=== PATIENT | female | born 1965 | race Caucasian/White ===

== ENCOUNTER → 2019-02-17 | Outpatient (CLI) | payer OTHER | LOC: RAD 11:07 | DX: Z12.31 Encounter for screening mammogram for malignant neoplasm of breast (principal) ==

== ENCOUNTER → 2019-08-20 | Outpatient (CLI) | payer OTHER | LOC: RAD 13:23 | DX: M17.0 Bilateral primary osteoarthritis of knee (principal); M16.0 Bilateral primary osteoarthritis of hip ==

== ENCOUNTER 2019-12-23 16:46 | Inpatient (IN) | payer OTHER ==
[~2019-12-23] VITALS: Ht 165.1 cm; Wt 80.3 kg
--- NOTE | ~2019-12-23 | D ---
[facility] [place] [address] DISCHARGE SUMMARY Name: TOMASZ LUDWIG DORCAS Room #: 441-P [facility] IN M.R.#: [id number] Admission: 01/31/20 Attend Phys: Hammad Mccurdy MD Discharge: 02/02/20 Date of : 65 Report #: [id number] THIS REPORT FOR: cc: Xiomara York MD, Sara A. MD Clymer, David J. MD ~ THIS REPORT FOR: //name// CC: Hammad York DATE OF SERVICE: 02/02/2020 FINAL DIAGNOSIS: End-stage degenerative arthritis of her right hip. OPERATIVE PROCEDURE: Right total hip arthroplasty. HISTORY OF PRESENT ILLNESS: This generally active, fit and healthy 54-year-old female presents with severe early degenerative arthritis involving multiple joints. This involves both hips and both knees to some extent. The right hip is the most severe. She has decided to go ahead with right total hip arthroplasty. HOSPITAL COURSE: The patient was admitted and taken to the operating room on 01/31/2020. She underwent right total hip replacement, which she tolerated quite nicely. Postoperatively, her course was largely unremarkable. She was able to quickly advanced from IV analgesics to oral analgesics and resume a regular diet. She participated with physical therapy and made excellent progress. She was started on anticoagulation using Xarelto. She has excellent assistance at home and felt quickly that she was able to manage and was anxious for hospital discharge. DISCHARGE MEDICATIONS: Include Xarelto 10 mg daily and hydrocodone 10 mg q.8 hours p.r.n. for pain. She will continue moderate activity at home with assistance from family. I have asked her to call me or return should there be any problems or questions. I will otherwise plan to see her back in my office in about 1 week postoperatively for routine followup. By: [id number] Hammad Mccurdy MD /nt
[2020-01-13] MEDS ORDERED: MAGNESIUM500 MG PO (14:22)
[2020-01-13] MEDS ORDERED: VITAMIN D325 MC3 PO (14:22)
[2020-01-13] MEDS ORDERED: VYVANSE40 MG PO (14:22)
[2020-01-13] MEDS ORDERED: IBU600 MG PO (14:24)
[2020-01-20 09:28] LABS: HEMATOCRIT 40.9 % (37.0-47.0); HEMOGLOBIN 14.1 gm/dL (12.0-15.0); MCH 32.7 pg (26.0-34.0); MCHC 34.6 g/dL (28.0-37.0); MCV 94.5 fL (80.0-100.0); RBC 4.33 mil/uL (4.20-5.00); RDW 12.2 % (10.5-14.5); WBC 7.6 thou/uL (4.0-11.0)
[2020-01-20 09:33] LABS: ALBUMIN 4.1 g/dL (3.4-5.0); CALCIUM 8.9 mg/dL (8.5-10.1); CREATININE 0.8 mg/dL (0.6-1.0); POTASSIUM 4.5 mmol/L (3.5-5.1)
[2020-01-20 09:34] LABS: URINE BILIRUBIN NEGATIVE (Negative); URINE BLOOD NEGATIVE (Negative); URINE CLARITY CLEAR; URINE COLOR YELLOW; URINE GLUCOSE-RANDOM* NEGATIVE (Negative); URINE KETONES NEGATIVE (Negative); URINE LEUKOCYTES-REFLEX NEGATIVE (Negative); URINE NITRITE-REFLEX NEGATIVE (Negative); URINE PROTEIN (DIPSTICK) NEGATIVE (Negative); URINE SPECIFIC GRAVITY <= 1.005 (1.005-1.035); URINE UROBILINOGEN 0.2 E.U./dl (0.2-1.0)
[2020-01-20 09:35] LABS: PROTIME 10.2 Seconds (9.3-11.4)
--- NOTE | 2020-01-21 08:41 | EKG ---
[facility] [place] [address] [place] [address] ELECTROCARDIOGRAM REPORT Name: NARAYAN LUDWIGAreli TOSCANO Room #: PRE IN M.R.#: [id number] Admission: Attend Phys: Hammad Mccurdy MD Discharge: Date of : 65 Report #: [id number] THIS REPORT FOR: cc: Xiomara York MD, Sara A. MD Lundgren,Will Mora MD [facility] ~ THIS REPORT FOR: //name// 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
[2020-01-31 08:53] VITALS: BP 121/68
[2020-01-31 13:45] VITALS: BP 114/71
[2020-01-31 14:00] VITALS: BP 113/84
[2020-01-31 14:40] VITALS: BP 113/60
--- NOTE | 2020-01-31 15:16 | NUR ---
PATIENT ADMITTED FROM OR ARRIVED ON THE UNIT AT 1330. PATIENT ALERT AND ORIENTED X4. PATIENT HAS RIGHT HIP CHANTALE DRESSING, SCD'S, NATALIIA HOSE, AND ICE PACK, ALSO HEMOVAC IN PLACE. LEFT FOREARM IV IN PLACE. PATIENT C/O PAIN WITH RIGHT HIP AREA, 8/10, OXYCODONE 1 TABLET GIVEN. IV FLUIDS STARTED. ADMISSION DONE, EXCEPT CAREPLAN. REPORT GIVEN TO SHIRA/YANICK. DIPAK/PT WORKED WITH THE PATIENT, SHE FELT LIKE SHE WAS GOING TO PASS OUT, ONLY WALKED 10 FEET. WILL CONTINUE TO MONITOR.
[2020-01-31 18:59] VITALS: BP 116/63
--- NOTE | 2020-01-31 19:46 | NUR ---
PATIENT IS NEW TO UNIT ROOM 441. PT ALERT XS 4. USES BSC TO URINATE. EATING SNACK PACK AND APPLESAUCE. DRINKS WATER AND SPRITE. PICCO DRESSING TO RIGHT HIP. HAS HEMOVAC TO RIGHT HIP. PT GIVEN PRN PAIN MED. PT IS ROOM AIR AND REGULAR DIET,
[2020-02-01 03:34] VITALS: BP 103/61
[2020-02-01 06:21] LABS: HEMATOCRIT 33.8 % (37.0-47.0); HEMOGLOBIN 11.4 gm/dL (12.0-15.0); MCHC 33.7 g/dL (28.0-37.0); MCV 94.8 fL (80.0-100.0); RBC 3.57 mil/uL (4.20-5.00); RDW 12.6 % (10.5-14.5); WBC 9.4 thou/uL (4.0-11.0)
[2020-02-01 07:49] VITALS: BP 102/59
--- NOTE | 2020-02-01 07:52 | O ---
[facility] [place] [address] OPERATIVE REPORT Name: TOMASZ LUDWIG Room #: 441-P ADM IN M.R.#: [id number] Admission: 01/31/20 Attend Phys: Hammad Mccurdy MD Discharge: Date of : 65 Report #: [id number] THIS REPORT FOR: cc: Xiomara York MD, Sara A. MD Clymer, David J. MD ~ CC: Hammad York DATE OF SERVICE: 01/31/2020 PREOPERATIVE DIAGNOSIS: End-stage degenerative arthritis, right hip. POSTOPERATIVE DIAGNOSIS: End-stage degenerative arthritis, right hip. PROCEDURE: Right total hip arthroplasty. SURGEON: Hammad Mccurdy MD INDICATIONS: This generally healthy, active 54-year-old female has severe early degenerative arthritis in multiple joints. The right hip demonstrates evidence of some mild dysplasia with a shallow acetabulum and rather severe end-stage degenerative arthritis with significant deformity of the femoral head and complete loss of joint space. Given these findings and symptoms, she has elected to go ahead with right total hip replacement at this time. DESCRIPTION OF PROCEDURE: The patient was taken to the operating room where she was placed under general anesthesia. Prophylactic intravenous antibiotics were administered. She was positioned in the left lateral decubitus position and the right hip, thigh and leg were meticulously prepped and draped. A slightly curving posterolateral skin incision was made centered over the greater trochanter. This was carried through subcutaneous tissues and fascia and gluteus to expose the posterior aspect of the hip joint. The short external rotators and capsule were taken down and tagged with several #1 Tevdek sutures and preserved. The hip was dislocated posteriorly. Marked degenerative change on both the femoral head and acetabulum was noted. There was rather extensive spurring around the margin of the acetabulum, which was debrided. A femoral neck osteotomy was performed and the canal was opened with reamers and hand broaches. The Ambrocio and Nephew hip system was utilized. A size 12 standard femoral stem seemed to fit quite nicely. The trial broach was removed and attention directed to the acetabulum. Further debridement of the periacetabular osteophytes was performed and the acetabulum was sequentially reamed, gradually advancing to a 52 mm diameter reamer. A Ambrocio and Nephew size 52 StikTite 3-hole acetabular shell was selected. This was inserted in alignment with her true acetabulum, which positioned this in about 45 degrees off of vertical and about 20-25 degrees of anteversion. The cup seated nicely and appeared to be [address] [address] OPERATIVE REPORT Name: TOMASZ LUDWIG DORCAS Room #: 441-P [facility] IN M.R.#: [id number] Admission: 01/31/20 Attend Phys: Hammad Mccurdy MD Discharge: Date of : 65 Report #: [id number] very secure. In addition, 2 cancellous screws were placed through the apical holes engaging good periacetabular bone and adding to the overall stability. A 36-mm polyethylene liner was then inserted, placing the 20-degree elevated rim at about the 10 o'clock posterior position. It was snapped into place and seated nicely and appeared to be secure. The permanent Ambrocio and Nephew size 12 standard Synergy press fit femoral stem was then inserted. This was positioned about 15 degrees of anteversion. It seated nicely and appeared to be secure. Trial reduction was performed and a +0 neck length seemed to fit nicely. The 36 mm Oxinium head with a +0 neck length was selected. This was impacted on the Johns taper. The hip was reduced. Alignment, range of motion, stability and leg length were assessed and felt to be satisfactory. Good hemostasis was confirmed. The wound was aggressively irrigated. The capsule and short external rotators were then repaired back to bone using #1 Tevdek sutures, passed through several small drill holes in the greater trochanter. A single Hemovac was left in the wound exiting through a separate stab incision. The fascia was closed with multiple #1 Vicryl sutures. The subcutaneous tissues were closed with 0 Monocryl and the skin was closed with skin alannah. A sterile dressing was applied. The patient was awakened and returned to recovery room in good condition. <ELECTRONICALLY SIGNED> By: Hammad Mccurdy MD 02/01/20 0752 1157 1211 Hammad Mccurdy MD /nt
[2020-02-01 08:43] LABS: CREATININE 0.7 mg/dL (0.6-1.0); POTASSIUM 4.2 mmol/L (3.5-5.1)
--- NOTE | 2020-02-01 13:35 | NUR ---
ASSESSMENT: CM REVIEWED CHART AND SPOKE WITH PATIENT. PT IS ALERT AND ORIENTED X4. PT IS S/P R TKA. PT REPORTS LIVING IN A HOUSE WITH HER SPOUSE. PT REPORTS HAVING ABOUT THREE STEPS TO ENTER WITH A HANDRAIL. PT REPORTS SHE NORMALLY AMBULATES INDEPENDENTLY AND IS INDEPENDENT WITH ADLS. PT REPORTS HAVING A WALK IN SHOWER. PT HAS BEEN AMBULATING WITH THERAPY AND IS NEEDING A WALKER FOR HOME. CM SPOKE WITH PT AND SHE HAS NO PREFERENCE OF [employer]. CM GOT RX FOR WALKER AND FAXED TO [facility] PT AND AWAITING FURTHER INPUT FROM THEM. PT REPORTS SHE HAS NOT HAD HH IN THE PAST NOR BEENM TO A SNF. PHYSICAL THERAPY IS RECOMMENDING HOME VS. OUTPATIENT. CM WILL CONTINUE TO FOLLOW TO ASSIST NEEDED.
[2020-02-01 17:14] VITALS: BP 109/62
--- NOTE | 2020-02-01 18:38 | NUR ---
ASSUMED PATIENT CARE AT 0700. PATIENT TYE X4.HAD TOTAL RT HIP REPLACEMENT. PAIN OF 5-6 ON RT HIP, WELL CONTROLLED BY PAIN MEDS. PAIN TOLERATING WELL ON AMBULATION AND ON STAND BY ASST. HEMOVAC REMOVED, CHANTALE DRESSING, SCD'S AND ICE PACKS IN PLACE. BED IN LOW POSITION, CALL LIGHT IN REACH, PATIENT WILL CALL FOR HELP, WILL CONTINUE TO MONITOR.
[2020-02-01 19:01] VITALS: BP 111/61
[2020-02-02 03:06] VITALS: BP 107/50
--- NOTE | 2020-02-02 05:27 | NUR ---
PT WAS OBSERVED WATCHING TV AT START OF SHIFT.ASSESSMENT COMPLETED.PT C/O PAIN ON HER R HIP,MANAGED WITH MED.SCD AND NATALIIA HOSE IN PLACE.PT COMPLAINED THAT BOTH HER LEGS ARE NO LONGER EQUAL,PT STATED THAT SHE OBSERVED IT WHEN SHE TRIED TO WALK.PT STATED THAT SHE WILL LET PHYSICIAN KNOW IN AM.DRSG TO HER HIP C/D/I.CHANTALE DRSG AND ICE IN PLACE.PT RESTING ON HER BED AT THIS TIME.FALL PRECAUTIONS IN PLACE,CALL LIGHT WITHIN REACH.
[2020-02-02 05:45] LABS: ABSOLUTE NEUTROPHILS 5.8 thou/uL (1.4-8.2); BASOPHILS 0.4 % (0.0-2.0); EOSINOPHILS 0.9 % (0.0-3.0); HEMATOCRIT 30.8 % (37.0-47.0); HEMOGLOBIN 10.7 gm/dL (12.0-15.0); LYMPHOCYTES 15.3 % (24.0-44.0); MCH 32.9 pg (26.0-34.0); MCHC 34.7 g/dL (28.0-37.0); MCV 94.9 fL (80.0-100.0); MONOCYTES 11.2 % (1.0-8.0); PLATELET COUNT 207 thou/uL (150-400); POLYS 72.2 % (36.0-66.0); RBC 3.24 mil/uL (4.20-5.00); RDW 12.5 % (10.5-14.5)
[2020-02-02 06:03] LABS: CALCIUM 7.9 mg/dL (8.5-10.1); CREATININE 0.6 mg/dL (0.6-1.0); MAGNESIUM 1.8 mg/dL (1.8-2.4); POTASSIUM 3.8 mmol/L (3.5-5.1)
[2020-02-02 07:45] VITALS: BP 102/57
--- NOTE | 2020-02-02 15:05 | NUR ---
ON-GOING ASSESSMENT: CM REVIEWED CHART AND SPOKE WITH PT. CM ALSO SPOKE WITH [facility] TO GET A FOLLOW UP ON WALKER. THEY STATE THEY ARE IN-NETWORK WITH INSURANCE BUT ADRIANNE WANTS THEM TO COMPLETE A FORM PRIOR TO THEM APPROVING WALKER. THEY ARE GOING TO SUBMIT FORM AND WILL GET BACK WITH CM. CM UPDATED PT. CM ALSO FAXED [facility] PATIENTS PHYSICAL THERAPY NOTE RECOMMENDING A WALKER. CM SPOKE WITH PT WHO STATES HER OUTPATIENT THERAPY HAS NOT BEEN SET UP. CM NOTIFIED BEDSIDE RN TO GET A RX FROM DR HUFF FOR OUTPATIENT PT/OT. CM ALSO CONTACTED [facility] OUTPATIENT THERAPY [phone] TO GIVE THEM A HEADS UP OF REFERRAL. CM SPOKE WITH BEDSIDE RN WHO REPORTS DR. HUFF WILL NOT BE BY UNTIL LATER THIS EVENING. CM NOTIFIED PT TO TAKE SCRIPT TO OUTPT THERAPY. CM ALSO NOTIFIED TO CALL THEM TO SCHEDULE OUTPATIENT THERAPY. PT REPORTS HAVING A FAMILY MEMBER WHO HAS A WALKER AT HOME SHE CAN USE UNTIL [facility] PT GETS BACK TO HER. CM NOTIFIED [facility] PATIENT OF PATIENTS HOME NUMBER, THEY STATE THEY ARE COMPLETING THE FORM AND FAXING TO HER INSURANCE AND UNSURE HOW LONG IT WILL TAKE THEM TO HEAR BACK. PT REPORTS HAVING A WALKER SHE CAN USE IN THE MEANTIME. PT REPORTS NO FURTHER QUESTIONS FOR CM.
[2020-02-02 16:35] VITALS: BP 106/68
--- NOTE | 2020-02-02 16:45 | NUR ---
ASSUMED PATIENT CARE AT 0700. PT AXO X4, STAND BY ASST.CONCERN ABT THE ALIGNMENT OF HER FEET- SHE SAYS LEGS OT EQUAL. PAIN MANAGED BY PAIN MEDS, SITTING ON HER CHAIR MOST OF THE TIME. IV LEFT AC. PICCO DRESSING, SCD'S AND ICE PACK IN PLACE.SHE SAID, SHE COMMUNICATES HER COND WITH FAMILY. CALL LIGHT IN REACH, BED IN LOW POSITION, WILL CALL FOR HELP. WILL CONT TO MONITOR.
[2020-02-02 18:13] VITALS: BP 106/68
== END 2020-02-02 19:19 | disposition home or self-care (01) | DRG 470 ==
LOC: PRE 16:46 → TBA 01-31 08:03 → 4S 01-31 08:03 → PRE 01-31 08:33 → 4S 01-31 13:33 → PRE 01-31 16:27 → 4S 02-02 19:19
PROVIDERS: Nurse Practitioner; ADMIT Orthopaedic Surgery
PROC: 0SR906A Replacement of Right Hip Joint with Oxidized Zirconium on Polyethylene Synthetic Substitute, Uncemented, Open Approach (ICD-10-PCS; principal; 2020-01-31)
DX: M16.11 Unilateral primary osteoarthritis, right hip (principal); Z88.2 Allergy status to sulfonamides; Z79.899 Other long term (current) drug therapy; F90.9 Attention-deficit hyperactivity disorder, unspecified type
CPT/HCPCS: 10102; 50010; 50101; 50382; 50414; 51412; 51771; 53368; 56521; 56525; 56527; 57095; 57103; 57104; 62110; 62900; 70005

== ENCOUNTER → 2020-06-06 | Outpatient (CLI) | payer OTHER ==
[~2020-06-06] MED LIST: IBU600 MG PO; MAGNESIUM500 MG PO; VITAMIN D325 MC3 PO; VYVANSE40 MG PO
== END ==
LOC: RAD 09:20
PROVIDERS: ATTEND Family Medicine
DX: Z12.31 Encounter for screening mammogram for malignant neoplasm of breast (principal); N60.82 Other benign mammary dysplasias of left breast; N60.81 Other benign mammary dysplasias of right breast; Z98.890 Other specified postprocedural states

== ENCOUNTER → 2020-08-09 | Outpatient (CLI) | payer OTHER ==
[~2020-08-09] MED LIST changes: +APPLE CIDER VINEGAR PO
== END ==
LOC: LAB 07:59
PROVIDERS: ATTEND Orthopaedic Surgery
DX: Z20.828 Contact with and (suspected) exposure to other viral communicable diseases (principal)

== ENCOUNTER 2020-08-14 07:39 | Inpatient (IN) | payer OTHER ==
[2020-07-31 09:42] LABS: ALBUMIN 3.5 g/dL (3.4-5.0); CALCIUM 8.8 mg/dL (8.5-10.1); CREATININE 0.9 mg/dL (0.6-1.0); HEMATOCRIT 37.9 % (37.0-47.0); HEMOGLOBIN 12.8 gm/dL (12.0-15.0); MCH 31.6 pg (26.0-34.0); MCHC 33.9 g/dL (28.0-37.0); MCV 93.3 fL (80.0-100.0); POTASSIUM 4.5 mmol/L (3.5-5.1); RBC 4.07 mil/uL (4.20-5.00); RDW 14.7 % (10.5-14.5); WBC 5.5 thou/uL (4.0-11.0)
[2020-07-31 09:44] LABS: URINE BILIRUBIN NEGATIVE (Negative); URINE BLOOD NEGATIVE (Negative); URINE CLARITY CLEAR; URINE COLOR YELLOW; URINE GLUCOSE-RANDOM* NEGATIVE (Negative); URINE KETONES NEGATIVE (Negative); URINE LEUKOCYTES-REFLEX NEGATIVE (Negative); URINE NITRITE-REFLEX NEGATIVE (Negative); URINE PROTEIN (DIPSTICK) NEGATIVE (Negative); URINE UROBILINOGEN 0.2 E.U./dl (0.2-1.0)
[2020-07-31 09:55] LABS: PROTIME 10.2 Seconds (9.3-11.4)
[~2020-08-14] VITALS: Ht 165.1 cm; Wt 83.0 kg
[2020-08-14 08:34] VITALS: BP 125/76
[2020-08-14 14:09] VITALS: BP 125/76
--- NOTE | 2020-08-14 15:39 | NUR ---
ASSESSMENT: CM REVIEWED CHART AND SPOKE WITH PT. PT IS S/P LEFT THR. PT REPORTS LIVING IN A HOUSE WITH HER SPOUSE BUT WILL BE STAYING WITH HER MOTHER AT DISCHARGE THERE IS ONLY ONE STEP TO ENTER. PT REPORTS SHE HAS BEEN BORROWING A WALKER. PT REPORTS SHE WOULD LIKE TO TRY TO GET ONE THROUGH INSURANCE IF POSSIBLE. PER PAST RECORDS ATTEMPTED TO GET PT A WALKER THROUGH [facility] BUT PT REPORTS THEY NEVER DELIVERED HER ONE. PT REPORTS THAT HER SONS ARE THERASPIST AND DID HER THERAPY AT DISCHARGE AND REPORTS SHE IS GOING TO DO THIS AGAIN. CM WILL CONTINUE TO FOLLOW TO ASSIST NEEDED. CM ATTEMPTING TO REACH OUT TO [facility] IN REGARDS TO WALKER.
--- NOTE | 2020-08-14 20:19 | NUR ---
PT CARE ASSUMED FROM PACU AT 1330. A&Ox4. ADMISSION COMPLEETED. PAIN TOLERATED WELL WITH PAIN MEDICATION ON BOARD. VITALS STABLE. IV PATENT WITH NO REDNESS OR EDEMA, FLUIDS INFUSING. NATALIIA HOSES/SCD'S/ ICE BAG IN PLACE. CHANTALE DRESSING DRY AND INTACT. HEMOVAC DRAIN WELL 175ML. TOLERATING CLEAR LIQUIDS WELL ADVANCED DIET. HIP PRECOUTIONS IN PLACE. OT/PT/RT ON BOARD. PT HAS GOTTEN UP TO THE BEDSIDE COMMODE AND BECAME LIGHTHEADED. THIS WAS THE SAME WITH HER LAST HIP SURGERY A FEW MONTHS BACK. PHYSICALY TOLERATING TRANSFER WELL WITH STANDBY ASSIST. LATEX ALLERGY. FALL PROTOCOL IN PLACE. CALL LIGHT IN REACH. WILL CONTINUE TO MONITOR.
[2020-08-14 22:13] VITALS: BP 115/75
--- NOTE | 2020-08-15 03:59 | NUR ---
ALERT AND ORIENTED.VERY PLEASANT.LEFT HIP WITH CHANTALE C/D/I. ICE ARGELIA APPLIED.PAIN WELL MANAGED WITH OXYCODONE.SHE WAS ABLE TO GET TO THE BSC X1 THEN WALKED TO THE BATHROOM THEREFATER.HEMOVAC INTACT. AFEBRILE.DENIES ANY N/V.VOIDING WITH NO DIFFICULTY.PROGRESSING TOWARDS CARE GOALS.CALL LIGHT WITHIN REACH.
[2020-08-15 06:04] LABS: HEMATOCRIT 35.7 % (37.0-47.0); HEMOGLOBIN 11.9 gm/dL (12.0-15.0); MCH 31.4 pg (26.0-34.0); MCHC 33.3 g/dL (28.0-37.0); MCV 94.2 fL (80.0-100.0); RBC 3.79 mil/uL (4.20-5.00); RDW 14.2 % (10.5-14.5)
--- NOTE | 2020-08-15 08:14 | O ---
[facility] [place] [address] OPERATIVE REPORT Name: TOMASZ LUDWIG Room #: 437-P ADM IN M.R.#: [id number] Admission: 08/14/20 Attend Phys: Hammad Mccurdy MD Discharge: Date of : 65 Report #: [id number] THIS REPORT FOR: cc: Xiomara Yrok MD, Sara A. MD Clymer,Hammad Albert MD ~ DATE OF SERVICE: 08/14/2020 PREOPERATIVE DIAGNOSIS: End-stage degenerative arthritis, left hip. POSTOPERATIVE DIAGNOSIS: End-stage degenerative arthritis, left hip. PROCEDURE: Left total hip arthroplasty. SURGEON: Hammad Mccurdy M.D. INDICATIONS: This 55-year-old female has rather severe progressive degenerative arthritis involving both hips. Previously she underwent a right total hip replacement with good result. She returns now for planned left hip replacement. DESCRIPTION OF PROCEDURE: The patient was taken to the operating room where she was placed under general anesthesia. Prophylactic intravenous antibiotics were administered. She was turned to the right lateral decubitus position. The left hip, thigh and leg were meticulously prepped and draped. A slightly curving skin incision was made centered over the greater trochanter. This was extended through subcutaneous adipose tissues, fascia and the short external rotators were taken down and tagged with several #1 Tevdek sutures. The hip was dislocated posteriorly. Marked degenerative change on both the femoral head and acetabulum was noted. The Ambrocio and Nephew hip system was utilized. A femoral neck osteotomy was created and the canal was opened with reamers and hand broaches. A size 11 trial stem seemed to fit most nicely. The calcar was trimmed down to an appropriate level. The trial component was removed and attention directed to the acetabulum. The acetabulum was sequentially reamed, gradually advancing to a size 52 mm reamer. A Ambrocio and Nephew size 52, 3-hole StikTite shell was selected. This was impacted into the acetabulum in alignment with her true acetabulum, placing this in about 45 degrees off of vertical and about 20 degrees of anteversion. It seated nicely and appeared to be secure. In addition, 3 cancellous screws were placed through the atypical holes with good purchase on periacetabular bone adding to secure stability. A 36-mm diameter polyethylene liner was then inserted, placing the 20-degree elevated rim at about the 10 o'clock posterior position. It seated nicely and was secure. A trial reduction was performed and the hip was nicely stabilized when using the size 11 femoral stem and a +4 mm neck length head. The trial component was removed and the permanent Ambrocio and Nephew size 11 Synergy porous femoral component was inserted, placing this in about 15-20 degrees of [address] [address] OPERATIVE REPORT Name: TOMASZ LUDWIG Room #: 437-P [facility] IN M.R.#: [id number] Admission: 08/14/20 Attend Phys: Hammad Mccurdy MD Discharge: Date of : 65 Report #: [id number] anteversion. It seated nicely and appeared to be secure. A femoral head was then applied using the Oxinium 36 mm diameter head with a +4 mm neck length. The hip was reduced. Alignment, range of motion, stability and leg length were assessed and felt to be satisfactory. The short external rotators were then repaired also adding to hip stability. A single Hemovac was left in the wound exiting through a separate stab incision. The fascia was closed with multiple #1 Vicryl sutures. The subcutaneous tissues were closed with 0 Monocryl. The skin was closed with skin alannah. A sterile dressing was applied. The patient was awakened and returned to recovery room in good condition. <ELECTRONICALLY SIGNED> By: Hammad Mccurdy MD 08/15/20 0814 1201 1211 Hammad Mccurdy MD /nt
[2020-08-15 08:42] VITALS: BP 98/55
[2020-08-15 09:04] VITALS: BP 115/75
--- NOTE | 2020-08-15 10:36 | NUR ---
RD received nutrition consult and pt visited this am. Pt notes she had passed out due to skipping a meal, but her appetite is now doing well and eating at baseline. No recent wt loss noted [employer] and is currently 102% of reported usual body wt. Pt with no nutritional questions/concerns, no nutritional interventions planned at this time. Pt is low nutritional risk.
--- NOTE | 2020-08-15 11:40 | NUR ---
PT CARE ASSUMED AT 0700. A&Ox4. LATEX ALLERGY. HEMOVAC REMOVED. ICEPACK IN PLACE. PT FAINTED WHEN AMBULATING WITH OT THIS AM. VITALS CHECKED AND STABLE. PAIN TOLERATED WELL WITH PAIN MEDICATION ON BOARD. UP WALKING WITH PT AT NOON WITHOUT GETTING LIGHT HEADED. FALL PROTOCOL IN PLACE. CALL LIGHT IN REACH. SON AT BEDSIDE. WILL CONTINUE TO MONITOR.
[2020-08-15 19:10] VITALS: BP 119/66
[2020-08-16 02:50] VITALS: BP 96/54
[2020-08-16 06:24] LABS: HEMATOCRIT 35.4 % (37.0-47.0); HEMOGLOBIN 11.7 gm/dL (12.0-15.0); MCH 31.4 pg (26.0-34.0); MCV 95.2 fL (80.0-100.0); RBC 3.72 mil/uL (4.20-5.00); RDW 13.9 % (10.5-14.5); WBC 7.9 thou/uL (4.0-11.0)
--- NOTE | 2020-08-16 06:59 | NUR ---
PT HAD INCREASED PAIN AT THE START OF SHIFT. WITH ORAL PAIN MEDS GIVEN Q2HRS PRN, PATIENT REPORTS FEELING BETTER AND RATING PAIN AT AROUND 5/10 THIS MORNING. WALKING WITH [facility] WALKER. VOIDING OK,
[2020-08-16 07:42] VITALS: BP 100/61
--- NOTE | 2020-08-16 08:33 | NUR ---
late entry from 08/15/20: [facility] PROVIDED A WALKER TO PATIENT AND DELIVERED IT TO HER ROOM FOR HER TO TAKE HOME AT DISCHARGE.
--- NOTE | 2020-08-16 10:11 | NUR ---
PT CARE ASSUMED AT 0700. A&Ox4. CHANTALE DRESSING DRY AND INTACT. ICEPACK IN PLACE. PAIN MANAGED WELL WITH PAIN CONTROL ON BOARD. IV REMOVED. TEDHOSES/SCD'S IN PLACE. UP WITH OT/PT AND CLEARED. WALKER DELIVERED. PT DISCHAREGED WITH NO FURTHER QUESTIONS. CALL LIGHT IN REACH. WILL CONTINUE TO MONITOR UNTIL LEAVING.
[2020-08-16 10:22] VITALS: BP 115/75
--- NOTE | 2020-08-16 12:59 | NUR ---
ON-GOING ASSESSMENT: PT HAS ORDERS TO DISCHARGE HOME TODAY WITH NO NEEDS. PTS WALKER WAS IN HER ROOM FROM [facility].
--- NOTE | 2020-08-17 15:59 | D ---
[facility] [place] [address] DISCHARGE SUMMARY Name: TOMASZ LUDWIG Room #: 437-P [facility] IN M.R.#: [id number] Admission: 08/14/20 Attend Phys: Hammad Mccurdy MD Discharge: 08/16/20 Date of : 65 Report #: [id number] THIS REPORT FOR: cc: Xiomara York MD, Sara A. MD Clymer,Hammad Albert MD ~ DATE OF SERVICE: 08/16/2020 FINAL DIAGNOSIS: End-stage degenerative arthritis, left hip. OPERATIVE PROCEDURES: Left total hip arthroplasty. HISTORY OF PRESENT ILLNESS: This active and fit 55-year-old female presents with progressive bilateral hip pain related to degenerative arthritis. She underwent previous right total hip replacement with good result. She returns now for planned left total hip replacement. HOSPITAL COURSE: The patient was admitted and taken to the operating room on 08/14/2020. She underwent left total hip replacement and tolerated that well. Postoperatively, her course was largely unremarkable. She did have some weakness and lightheadedness, but this responded with time and rest and IV fluids. Her hemoglobin remained stable. Her dressing remains dry. Her Hemovac output was minimal. The drain was removed. She was advanced to oral analgesics and a regular diet. She was started on Xarelto for anticoagulation. She was started on therapy and made excellent progress. She seems safe and ready for discharge home today on 08/16/2020. She notes that she is doing nicely with her walker and anticipates she will do well at home. She has plenty of family assistance and some of those family members are actual physical therapist. Given this, she feels she does not need any in-home therapy and will probably not even go to outpatient therapy. DISCHARGE MEDICATIONS: Include Vyvanse 40 mg daily, magnesium oxide 500 mg daily, vitamin D3 25 mcg daily, Xarelto 10 mg daily, hydrocodone 5 mg or 10 mg every 6 hours as needed for pain. She will call me if any problems or questions. I will plan to see her back in my office in 1 week for routine followup. <ELECTRONICALLY SIGNED> By: Hammad Mccurdy MD 08/17/20 1559 0917 0930 Hammad Mccurdy MD /nt
== END 2020-08-16 12:47 | disposition home health service (06) | DRG 470 ==
LOC: TBA 07:39 → PRE 08:48 → 4S 13:42 → PRE 17:10 → 4S 08-16 12:47
PROVIDERS: ADMIT Orthopaedic Surgery; ATTEND Orthopaedic Surgery
PROC: 0SRB06Z Replacement of Left Hip Joint with Oxidized Zirconium on Polyethylene Synthetic Substitute, Open Approach (ICD-10-PCS; principal; 2020-08-14)
DX: M16.12 Unilateral primary osteoarthritis, left hip (principal); Z82.61 Family history of arthritis; D64.9 Anemia, unspecified
CPT/HCPCS: 10102; 50010; 50101; 50382; 50414; 51412; 53000; 53368; 56521; 56525; 56530; 57095; 57103; 62110; 62900; 70005

== ENCOUNTER → 2020-10-05 | Outpatient (CLI) | payer OTHER | LOC: CAT 14:03 | PROVIDERS: ATTEND Family Medicine | DX: N28.1 Cyst of kidney, acquired (principal); K76.89 Other specified diseases of liver; K57.30 Diverticulosis of large intestine without perforation or abscess without bleeding ==

== ENCOUNTER → 2021-03-01 | Outpatient (CLI) | payer OTHER ==
[2021-03-01 10:08] LABS: ABSOLUTE NEUTROPHILS 5.4 thou/uL (1.4-8.2); BASOPHILS 0.6 % (0.0-2.0); EOSINOPHILS 1.8 % (0.0-3.0); HEMATOCRIT 38.7 % (37.0-47.0); HEMOGLOBIN 13.2 gm/dL (12.0-15.0); LYMPHOCYTES 24.5 % (24.0-44.0); MCH 31.2 pg (26.0-34.0); MCHC 34.1 g/dL (28.0-37.0); MCV 91.4 fL (80.0-100.0); MONOCYTES 9.4 % (1.0-8.0); PLATELET COUNT 284 thou/uL (150-400); POLYS 63.7 % (36.0-66.0); RBC 4.23 mil/uL (4.20-5.00); RDW 14.6 % (10.5-14.5); WBC 8.4 thou/uL (4.0-11.0)
[2021-03-01 10:09] LABS: URINE BILIRUBIN NEGATIVE (Negative); URINE BLOOD NEGATIVE (Negative); URINE CLARITY CLEAR; URINE COLOR YELLOW; URINE GLUCOSE-RANDOM* NEGATIVE (Negative); URINE KETONES NEGATIVE (Negative); URINE LEUKOCYTES-REFLEX NEGATIVE (Negative); URINE NITRITE-REFLEX NEGATIVE (Negative); URINE PROTEIN (DIPSTICK) NEGATIVE (Negative); URINE UROBILINOGEN 0.2 E.U./dl (0.2-1.0)
[2021-03-01 10:26] LABS: ALBUMIN 3.6 g/dL (3.4-5.0); ANION GAP 8 mmol/L (7-16); BUN 14 mg/dL (7-18); CALCIUM 8.6 mg/dL (8.5-10.1); CHLORIDE 103 mmol/L (98-107); CHOLESTEROL 244 mg/dL (<200); CO2 28 mmol/L (21-32); CREATININE 0.7 mg/dL (0.6-1.0); GLUCOSE 94 mg/dL (74-106); HDL CHOLESTEROL 87 mg/dL (>40); LDL CHOLESTEROL 140 mg/dL (<100); SGOT 20 U/L (15-37); SGPT 29 U/L (30-65); SODIUM 139 mmol/L (136-145); TC:HDL 2.8 Ratio (Not establshd); TOTAL BILIRUBIN 0.3 mg/dL (0.2-1.0); TOTAL PROTEIN 7.3 g/dL (6.4-8.2); TRIGLYCERIDE 86 mg/dL (<150); VLDL 17 mg/dL (<40)
== END ==
LOC: RAD 07:10 → LAB 07:10
PROVIDERS: ATTEND Nurse Practitioner
DX: Z00.00 Encounter for general adult medical examination without abnormal findings (principal); M51.36 Other intervertebral disc degeneration, lumbar region; M48.061 Spinal stenosis, lumbar region without neurogenic claudication; M51.34 Other intervertebral disc degeneration, thoracic region

== ENCOUNTER → 2021-06-08 | Outpatient (CLI) | payer OTHER | LOC: RAD 09:29 | PROVIDERS: ATTEND Family Medicine | DX: Z12.31 Encounter for screening mammogram for malignant neoplasm of breast (principal) ==